=== PATIENT | female | born 2000 | race African-American/Black ===

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

== ENCOUNTER 2021-01-17 03:35 | Emergency (ER) | payer OTHER ==
[~2021-01-17] VITALS: Ht 152.4 cm; Wt 64.9 kg
[~2021-01-17 03:35] MED LIST: FLAGYL500 M1 PO; KEFLEX500 M1 PO
[2021-01-17 03:37] VITALS: BP 128/76
[2021-01-17] MEDS ORDERED: INSULIN PUMP (03:42)
[2021-01-17] MEDS ORDERED: MOBIC15 MG PO (05:33)
== END 2021-01-17 05:46 | disposition home or self-care (01) ==
LOC: ER 03:35
DX: S56.012A Strain of flexor muscle, fascia and tendon of left thumb at forearm level, initial encounter (principal); E11.9 Type 2 diabetes mellitus without complications; Z79.4 Long term (current) use of insulin; Y04.0XXA Assault by unarmed brawl or fight, initial encounter; Y93.89 Activity, other specified; Y92.89 Other specified places as the place of occurrence of the external cause; Y99.8 Other external cause status

== ENCOUNTER 2021-04-18 10:13 | Emergency (ER) | payer OTHER ==
[~2021-04-18] VITALS: Ht 152.4 cm; Wt 63.5 kg
[~2021-04-18 10:13] MED LIST changes: +INSULIN PUMP; +MOBIC15 MG PO
[2021-04-18 11:30] VITALS: BP 118/67
== END 2021-04-18 11:29 | disposition home or self-care (01) ==
LOC: ER 10:13
DX: J02.9 Acute pharyngitis, unspecified (principal); Z20.822 Contact with and (suspected) exposure to COVID-19; E11.9 Type 2 diabetes mellitus without complications; Z79.899 Other long term (current) drug therapy